=== PATIENT | male | born 1980 | race Hispanic/Latino ===

== ENCOUNTER 2024-04-14 11:20 | Day surgery (SDC) | payer SELFPAY ==
[2024-04-13 14:21] VITALS: BMI 22.8
[2024-04-14] MEDS ORDERED: CEFAZOLIN 2 GM VIAL ONE (12:02)
[2024-04-14] MEDS ORDERED: Lidocaine 1% PF 5 ML VIAL ONE (12:12)
[2024-04-14] MEDS ORDERED: fentaNYL PF 100 MCG/2 ML SYRINGE ONE (12:12)
[2024-04-14] MEDS ORDERED: PROPOFOL 20 ML ONE (12:12)
[2024-04-14] MEDS ORDERED: fentaNYL 50 mcg/mL 1 mL Vial ONE (12:13)
[2024-04-14] MEDS ORDERED: Midazolam HCl 2 mg/2 ml Vial ONE (12:13)
[2024-04-14] MEDS ORDERED: Ropivacaine 0.5% HCl/PF (150 MG/30 ML VIAL) ONE (12:14)
[2024-04-14] MEDS ORDERED: Sterile Water 10 ML ONE (12:41)
[2024-04-14] MEDS ORDERED: Dexamethasone 20 MG/5 ML VIAL ONE (12:52)
[2024-04-14] MEDS ORDERED: Dexamethasone 4 mg/ml Vial ONE (12:52)
[2024-04-14] MEDS ORDERED: Ketorolac Tromethamine 30 MG (1 mL) VIAL ONE (12:52)
[2024-04-14] MEDS ORDERED: Ropivacaine 2% HCl/PF (20 MG/10 ML VIAL) ONE (12:53)
[2024-04-14] MEDS ORDERED: Ondansetron PF 4 MG/2 ML Vial ONE (12:53)
== END 2024-04-14 16:31 | disposition home or self-care (01) ==
LOC: SDC 11:20
PROVIDERS: ATTEND Orthopaedic Surgery
PROC: 3E0T3BZ Introduction of Anesthetic Agent into Peripheral Nerves and Plexi, Percutaneous Approach (ICD-10-PCS; principal; 2024-04-14)
PROC: 0QSK04Z Reposition Left Fibula with Internal Fixation Device, Open Approach (ICD-10-PCS; principal; 2024-04-14)
DX: S82.62XA Displaced fracture of lateral malleolus of left fibula, initial encounter for closed fracture (principal); W19.XXXA Unspecified fall, initial encounter
CPT/HCPCS: C1713; J1100; J1885; J2250; J2405; J2704; J2795; J3010